=== PATIENT | male | born 1985 | race Caucasian/White ===

== ENCOUNTER 2017-12-10 23:39 | Emergency (ER) | payer BC ==
[2017-12-10 23:56] VITALS: PULSE 75; RESP 16; TEMP 97.8
[2017-12-11] MEDS ORDERED: LIDOCAINE HCL 1% 50 MG/5 ML SOL INFIL ONE
[2017-12-11] MEDS ORDERED: LIDOCAINE HCL 1% MPF SOL ONE
[2017-12-11 00:25] VITALS: BP 125/76; O2SAT 98
== END 2017-12-11 00:34 | disposition home or self-care (01) ==
LOC: ED 23:39
DX: S01.81XA Laceration without foreign body of other part of head, initial encounter (principal)
CPT/HCPCS: 99284; J2001